=== PATIENT | female | born 1965 | race African-American/Black ===

== ENCOUNTER 2016-12-02 18:40 | Emergency (ER) | payer MEDICAID ==
[~2016-12-02] VITALS: Ht 162.6 cm; Wt 82.1 kg
[~2016-12-02 18:40] MED LIST: AMLODIPINE-BEN1 EACH PO; BACTRIM-DS1 EA PO; VICODIN 5-5001 EACH PO; ZITHROMAX250 MG ORAL
[2016-12-02 19:15] VITALS: BP 121/67
[2016-12-02 19:41] LABS: BASOPHILS % (AUTO) 1.9 % (0.0-2.0); EOSINOPHILS % (AUTO) 3.4 % (0.0-3.0); LYMPHOCYTES % (AUTO) 41.4 % (20.0-45.0); MEAN CORPUSCULAR HEMOGLOBIN 25.6 PG (27.0-31.0); MEAN CORPUSCULAR HGB CONC 32.1 G/DL (32.0-36.0); MEAN CORPUSCULAR VOLUME 80 FL (80-99); MEAN PLATELET VOLUME 6.1 FL (6.5-10.1); MONOCYTES % (AUTO) 7.7 % (1.0-10.0); NEUTROPHILS % (AUTO) 45.6 % (45.0-75.0); PLATELET COUNT 249 K/UL (150-450); RED BLOOD COUNT 3.59 M/UL (4.20-5.40); RED CELL DISTRIBUTION WIDTH 16.7 % (11.6-14.8); WHITE BLOOD COUNT 5.7 K/UL (4.8-10.8)
[2016-12-02 19:59] LABS: APPEARANCE,URINE CLEAR; KETONES,URINE 1+ (NEGATIVE); LEUKOCYTE ESTERASE ,URINE NEGATIVE (NEGATIVE); NITRITE,URINE NEGATIVE (NEGATIVE); PH,URINE 5 (4.5-8.0); PROTEIN,URINE NEGATIVE (NEGATIVE); UROBILINOGEN,URINE NORMAL MG/DL (0.0-1.0)
[2016-12-02 20:07] LABS: ALANINE AMINOTRANSFERASE 12 U/L (3-33); ALBUMIN/GLOBULIN RATIO 1.2 (1.0-2.7); ANION GAP 15 (5-15); ASPARTATE AMINO TRANSFERASE 19 U/L (5-40); CALCIUM 9.1 mg/dL (8.6-10.2); CARBON DIOXIDE 26 mEQ/L (20-30); CHLORIDE 100 mEQ/L (98-107); CREATININE 0.9 mg/dL (0.5-0.9); GLOMERULAR FILTRATION RATE > 60 mL/min (>60); HEMOLYSIS 1; LIPASE 37 U/L (< 60); POTASSIUM 3.3 mEQ/L (3.4-4.9); SODIUM 141 mEQ/L (135-145); TOTAL PROTEIN 7.5 g/dL (6.6-8.7)
[2016-12-02 20:13] LABS: RBC,URINE 0-2 /HPF (0 - 2); SQUAMOUS EPITHELIAL CELL,UR FEW /LPF (NONE/OCC); WBC,URINE 0-2 /HPF (0 - 2)
[2016-12-02 21:15] VITALS: BP 125/69
--- NOTE | 2016-12-02 22:08 | Emergency Room Report ---
History of Present Illness General Chief Complaint: Vaginal Source: Patient Present Illness HPI 51-year-old female presents ED for evaluation. States the last 2 weeks she's had increased vaginal bleeding. Notes clots. Notes some cramping pain, 5/10, nonradiating. No other aggravating or relieving factors. Patient states she had blood work done by her PMD which are low hemoglobin. States she feels weak. States she is IUD in place. Denies any other associated symptoms Allergies: Coded Allergies: No Known Allergies (Unverified , 07/14/12) Patient History Past Medical History: HTN Past Surgical History: none Pertinent Family History: none Social History: Denies: alcohol use, drug use, smoking Last Menstrual Period: 11/20/16 Now: No - 10 year IUD inserted 2010 Immunizations: UTD Reviewed Nursing Documentation: PMH: Agreed, PSxH: Agreed Nursing Documentation-PMH Past Medical History: No History, Except For Hx Hypertension: Yes Review of Systems All Other Systems: negative except mentioned in HPI Physical Exam Vital Signs Date Time Temp Pulse Resp B/P Pulse Ox O2 Delivery O2 Flow Rate FiO2 12/02/16 18:51 98.1 82 14 121/67 100 Room Air Sp02 EP Interpretation: reviewed, normal General Appearance: no apparent distress, alert, GCS 15, non-toxic Head: normocephalic, atraumatic Eyes: bilateral eye PERRL, bilateral eye normal inspection ENT: hearing grossly normal, normal pharynx, no angioedema, normal voice Neck: full range of motion, supple/symm/no masses Respiratory: chest non-tender, lungs clear, normal breath sounds, speaking full sentences Cardiovascular #1: regular rate, rhythm, no edema Cardiovascular #2: 2+ carotid (R), 2+ carotid (L), 2+ radial (R), 2+ radial (L) , 2+ dorsalis pedis (R), 2+ dorsalis pedis (L) Gastrointestinal: normal bowel sounds, non tender, soft, non-distended, no guarding, no rebound Rectal: deferred Genitourinary: normal inspection, no CVA tenderness Musculoskeletal: back normal, gait/station normal, normal range of motion, non- tender Neurologic: alert, oriented x3, responsive, motor strength/tone normal, sensory intact, speech normal Psychiatric: judgement/insight normal, memory normal, mood/affect normal, no suicidal/homicidal ideation Reflexes: 3+ bicep (R), 3+ bicep (L), 3+ tricep (R), 3+ tricep (L), 3+ knee (R) , 3+ knee (L) Skin: normal color, no rash, warm/dry, well hydrated Lymphatic: no adenopathy Medical Decision Making Diagnostic Impression: Primary Impression: Vaginal bleeding ER Course Hospital Course 51-year-old F presents to ED with lower abd pain, vaginal bleeding Differential diagnosis includes-fibroids, anemia, ovarian cyst Clinical course Patient placed on stretcher. After initial history and physical I ordered labs , PElvic US Labs - no leukocytosis, hb/hct stable, LFTs normal, UA unremarkable Pelvic US - IUD in place, no evidence of fibroids. No active bleeding Discussed the findings with patient. Given normal hemoglobin with normal ultrasound with no active bleeding I believe she can be discharged at this time. Recommend followup with [facility] for IUD removal Diagnosis - vaginal bleeding Stable and discharged to home. Followup with PMD. Return to ED if symptoms recur or worsen Labs Test 12/02/16 19:00 12/02/16 19:29 Urine Color Pale yellow Urine Appearance Clear Urine pH 5 (4.5-8.0) Urine Specific Glide 1.015 (1.005-1.035) Urine Protein Negative (NEGATIVE) Urine Glucose (UA) Negative (NEGATIVE) Urine Ketones 1+ (NEGATIVE) Urine Occult Blood 1+ (NEGATIVE) Urine Nitrite Negative (NEGATIVE) Urine Bilirubin Negative (NEGATIVE) Urine Urobilinogen Normal MG/DL (0.0-1.0) Urine Leukocyte Esterase Negative (NEGATIVE) Urine RBC 0-2 /HPF (0 - 2) Urine WBC 0-2 /HPF (0 - 2) Urine Squamous Epithelial Cells Few /LPF (NONE/OCC) Urine Bacteria None /HPF (NONE) Urine HCG, Qualitative Negative White Blood Count 5.7 K/UL (4.8-10.8) Red Blood Count 3.59 M/UL (4.20-5.40) Hemoglobin 9.2 G/DL (12.0-16.0) Hematocrit 28.5 % (37.0-47.0) Mean Corpuscular Volume 80 FL (80-99) Mean Corpuscular Hemoglobin 25.6 PG (27.0-31.0) Mean Corpuscular Hemoglobin Concent 32.1 G/DL (32.0-36.0) Red Cell Distribution Width 16.7 % (11.6-14.8) Platelet Count 249 K/UL (150-450) Mean Platelet Volume 6.1 FL (6.5-10.1) Neutrophils (%) (Auto) 45.6 % (45.0-75.0) Lymphocytes (%) (Auto) 41.4 % (20.0-45.0) Monocytes (%) (Auto) 7.7 % (1.0-10.0) Eosinophils (%) (Auto) 3.4 % (0.0-3.0) Basophils (%) (Auto) 1.9 % (0.0-2.0) Prothrombin Time 10.0 SEC (9.30-11.50) Prothromb Time International Ratio 1.0 (0.9-1.1) Activated Partial Thromboplast Time 24 SEC (23-33) Sodium Level 141 mEQ/L (135-145) Potassium Level 3.3 mEQ/L (3.4-4.9) Chloride Level 100 mEQ/L (98-107) Carbon Dioxide Level 26 mEQ/L (20-30) Anion Gap 15 (5-15) Blood Urea Nitrogen 11 mg/dL (7-23) Creatinine 0.9 mg/dL (0.5-0.9) Estimat Glomerular Filtration Rate > 60 mL/min (>60) Glucose Level 110 mg/dL (74-106) Calcium Level 9.1 mg/dL (8.6-10.2) Total Bilirubin < 0.2 mg/dL (0.0-1.2) Aspartate Amino Transf (AST/SGOT) 19 U/L (5-40) Alanine Aminotransferase (ALT/SGPT) 12 U/L (3-33) Alkaline Phosphatase 43 U/L (35-104) Total Protein 7.5 g/dL (6.6-8.7) Albumin 4.1 g/dL (3.5-5.2) Globulin 3.4 g/dL Albumin/Globulin Ratio 1.2 (1.0-2.7) Lipase 37 U/L (< 60) CT/MRI/US Diagnostic Results CT/MRI/US Diagnostic Results : Imaging Test Ordered: Pelvic US Impression no acute pathology. Last Vital Signs Date Time Temp Pulse Resp B/P Pulse Ox O2 Delivery O2 Flow Rate FiO2 12/02/16 21:15 98.1 84 16 125/69 100 Room Air Status: improved Disposition: HOME, SELF-CARE Condition: Stable Patient Instructions: Jose [id number] ANNY LAO M.D. Dec 02, 2016 22:07
--- NOTE | 2016-12-03 17:18 | Diagnostic Imaging Report ---
Indication: ABD PAIN heavy vaginal bleeding since last menstrual period Technique: Transabdominal and transvaginal images Comparison: None Findings: Uterus is slightly retroflexed, measures 11.8 cm length by 5 cm AP. Normal endometrial thickness, 2 mm. There is an intrauterine device. There is questionably a small anterior fundal fibroid. Left ovary measures 2.9 cm in length. Right ovary measures 3.8 cm in length, demonstrates a 3 cm presumed dominant follicle. Both ovaries demonstrate normal blood flow. No free cul-de-sac fluid. There are cervical nabothian cysts Impression: Intrauterine device Possible fundal fibroid 3 cm right ovarian presumed dominant follicle. Negative for ovarian mass Is no finding cervical nabothian cysts
== END 2016-12-02 21:15 | disposition home or self-care (01) ==
LOC: EMR 19:36
DX: N93.9 Abnormal uterine and vaginal bleeding, unspecified (principal); Z97.5 Presence of (intrauterine) contraceptive device; I10 Essential (primary) hypertension
CPT/HCPCS: 36415; 76856; 80053; 81003; 81025; 83690; 85025; 85610; 85730; 86850; 86900; 86901; 96360

== ENCOUNTER 2019-11-11 04:23 | Emergency (ER) | payer MEDICAID ==
[~2019-11-11] VITALS: Ht 170.2 cm; Wt 104.3 kg
--- NOTE | 2019-11-11 04:36 | Emergency Room Report ---
History of Present Illness General Chief Complaint: Sore Throat Source: Patient Present Illness HPI Disclaimer: Please note that this report is being documented using [employer] technology. This can lead to erroneous entry secondary to incorrect interpretation by the dictating instrument. HPI: 54-year-old female presents for evaluation of chills and sore throat. Symptoms began approximate 1 hour ago. She states she awoke in the middle the night complaining of pain in her throat, chills and subjective fevers. She took a tablet of leftover antibiotics that she had from a previous infection. Cannot recall what they are. She noted some nasal congestion and postnasal drip as well. Mild nonproductive cough. Reported one episode of loose stools. Denies any vomiting, rash. No objective temperature readings were taken. Did not take any Tylenol or Motrin prior to arrival. [place] not have any known exposures to sick persons. No recent travel. PMH: Denies PSH: Denies Allergies: Denies Social Hx: Denies Allergies: Coded Allergies: No Known Allergies (Unverified , 07/14/12) Nursing Documentation-PMH Hx Hypertension: Yes Review of Systems All Other Systems: negative except mentioned in HPI Physical Exam General: Awake and alert, no acute distress, afebrile HEENT: NC/AT. EOMI. PERRLA. Noninjected sclera. Uvula midline. Nonobstructive tonsils. No pharyngeal edema or erythema. No exudates or ulcerations. Mild sinus congestion. No tenderness over the maxillary or frontal or ethmoid sinuses. Cardiovascular: RRR. S1 and S2 normal. No murmur appreciated Resp: Normal work of breathing. No cough, wheezing or crackles appreciated Abdomen: Abdomen is soft, nondistended. Nontender Skin: Intact. No abrasions, laceration or rash over the exposed skin MSK: Normal tone and bulk. Moving all extremities. No obvious deformity. Neuro: Awake and alert. Mentating appropriately. Medical Decision Making Diagnostic Impression: Primary Impression: Influenza-like symptoms ER Course 54-year-old female no reported medical history presents for evaluation of 1 hour sore throat, nasal congestion, nonproductive cough and chills. She states that she is feeling "pre-feverish." [place] no known exposure to sick contacts. Differential includes was not limited to viral syndrome such as influenza or possible novel coronavirus, pharyngitis, tonsillitis, sinusitis, bronchitis, pneumonia. Symptoms only been present for 1 hour. She is well-appearing, afebrile, clear lung sounds. Stable for outpatient isolation. I am recommending 2-week minimum isolation and self quarantine. Recommending the patient contact her PMD to arrange for outpatient COVID-19 testing as our testing stock is currently depleted and cannot offer her testing during this hospital visit. She does not require emergent labs or imaging or admission at this time. She can follow-up on an outpatient basis. Discussed reasons to return to the emergency department proper isolation precautions. She understands and agrees with this treatment plan will be discharged home. Disposition: HOME, SELF-CARE Condition: Stable Claudio Mackay MD Nov 11, 2019 04:36
[2019-11-11 04:40] VITALS: BP 144/86
== END 2019-11-11 04:40 | disposition home or self-care (01) ==
LOC: EMR 04:40
DX: R07.0 Pain in throat (principal); R50.9 Fever, unspecified
CPT/HCPCS: 99281

== ENCOUNTER 2020-07-15 12:49 | Emergency (ER) | payer MEDICAID ==
[~2020-07-15] VITALS: Ht 162.6 cm; Wt 86.2 kg
--- NOTE | 2020-07-15 13:00 | NUR ---
ED Nurse Note: Pt ambulated to ED from home d/t chest pain midsternal, non-radiating, goes on and off since this morning around 0300. Pt is AOx4, calm and cooperative to care, pt complains of headache and weakness as well. Pt's VSS, on RA, afebrile on triage. Placed on bed, hooked to monitor car operator.
--- NOTE | 2020-07-15 13:01 | NUR ---
ED Nurse Note: pt denies having chest pain as of now.
[2020-07-15 13:10] VITALS: BP 152/101
--- NOTE | 2020-07-15 13:15 | NUR ---
ED Nurse Note: x-ray at bedside.
--- NOTE | 2020-07-15 13:21 | Emergency Room Report ---
History of Present Illness General Chief Complaint: Chest Pain Source: Patient Present Illness HPI Disclaimer: Please note that this report is being documented using [employer] technology. This can lead to erroneous entry secondary to incorrect interpretation by the dictating instrument. HPI: 55-year-old female history of hypertension hyperlipidemia presents for evaluation of chest discomfort. Patient states she awoke approximately 3 AM complaining of palpitations and feeding her heart beat irregularly. She reports some midsternal nonradiating chest discomfort but does not describe it as pain specifically. Sometimes exacerbated by bending and twisting motion. She denies epigastric pain or discomfort or burning sensation. She was drinking alcohol last night to celebrate her birthday. Denies tobacco use. No cough, shortness of breath, fever, chills, sore throat, vomiting or diarrhea reported. No prior history of CAD. No prior cardiac evaluations. Currently her symptoms are resolved but she states they have been coming and going throughout the day. PMH: Hypertension, hyperlipidemia PSH: Denied Allergies: Denied Social Hx: Social alcohol use Allergies: Coded Allergies: No Known Allergies (Unverified , 07/14/12) COVID-19 Screening Contact w/high risk pt: No Recent Travel to affected area: No Experienced COVID-19 symptoms?: No COVID-19 Testing performed [facility] INST[employer]ER: No Nursing Documentation-PMH Past Medical History: No History, Except For Hx Hypertension: Yes Review of Systems All Other Systems: negative except mentioned in HPI Physical Exam Vital Signs Date Time Temp Pulse Resp B/P (MAP) Pulse Ox O2 Delivery O2 Flow Rate FiO2 07/15/20 12:57 98.6 95 20 152/101 (118) 98 Room Air General: Awake and alert, no acute distress HEENT: NC/AT. EOMI. Cardiovascular: RRR. S1 and S2 normal. No murmur appreciated Resp: Normal work of breathing. No cough, wheezing or crackles appreciated Abdomen: Abdomen is soft, nondistended. Nontender Skin: Intact. No abrasions, laceration or rash over the exposed skin MSK: Normal tone and bulk. Moving all extremities. No obvious deformity. Neuro: Awake and alert. Mentating appropriately. Medical Decision Making Diagnostic Impression: Primary Impression: Chest pain Additional Impression: Palpitations ER Course Well-appearing 55-year-old female presents for evaluation of chest discomfort. Differential includes was not limited to symptoms of recent alcohol use, electrolyte abnormality, ACS, arrhythmia, palpitations, thyroid dysfunction among others. EKG shows signs of LVH but no evidence of acute ischemia. Troponin is negative. Other labs are within normal limits. Chest x-ray shows no infiltrates. I do believe that the patient would benefit from outpatient cardiology evaluation but I do not see evidence of acute life-threatening injury at this time. Patient will be given copies of her EKG and labs to discuss with her PMD for referral to cardiology. We discussed that she should return to the emergency department with new or worsening symptoms otherwise. Also advised her to limit alcohol and spicy foods as this may be reflux related. She understands and agrees with treatment plan will be discharged home. Laboratory Tests Test 07/15/20 13:29 White Blood Count 4.7 K/UL (4.8-10.8) L Red Blood Count 4.39 M/UL (4.20-5.40) Hemoglobin 13.4 G/DL (12.0-16.0) Hematocrit 41.9 % (37.0-47.0) Mean Corpuscular Volume 96 FL (80-99) Mean Corpuscular Hemoglobin 30.6 PG (27.0-31.0) Mean Corpuscular Hemoglobin Concent 32.1 G/DL (32.0-36.0) Red Cell Distribution Width 14.1 % (11.6-14.8) Platelet Count 235 K/UL (150-450) Mean Platelet Volume 8.6 FL (6.5-10.1) Neutrophils (%) (Auto) 53.4 % (45.0-75.0) Lymphocytes (%) (Auto) 33.4 % (20.0-45.0) Monocytes (%) (Auto) 8.4 % (1.0-10.0) Eosinophils (%) (Auto) 3.2 % (0.0-3.0) H Basophils (%) (Auto) 1.6 % (0.0-2.0) Sodium Level 139 MMOL/L (136-145) Potassium Level 3.3 MMOL/L (3.5-5.1) L Chloride Level 103 MMOL/L (98-107) Carbon Dioxide Level 25 MMOL/L (21-32) Anion Gap 11 mmol/L (5-15) Blood Urea Nitrogen 13 mg/dL (7-18) Creatinine 0.9 MG/DL (0.55-1.30) Estimated Glomerular Filtration Rate > 60 mL/min (>60) Glucose Level 102 MG/DL (74-106) Calcium Level 8.9 MG/DL (8.5-10.1) Total Bilirubin 0.5 MG/DL (0.2-1.0) Aspartate Amino Transferase (AST) 29 U/L (15-37) Alanine Aminotransferase (ALT) 31 U/L (12-78) Alkaline Phosphatase 53 U/L (46-116) Troponin I 0.007 ng/mL (0.000-0.056) Total Protein 8.2 G/DL (6.4-8.2) Albumin 3.7 G/DL (3.4-5.0) Globulin 4.5 g/dL Albumin/Globulin Ratio 0.8 (1.0-2.7) L Thyroid Stimulating Hormone (TSH) 0.421 uiU/mL (0.358-3.740) EKG Diagnostic Results Troponin ordered: Yes When was troponin ordered?: Jul 15, 2020 EKG Time: 13:10 Rate: normal Rhythm: NSR ST Segments: no acute changes Other Impression Sinus rhythm, left axis, normal intervals, QTC 457 ms, no ST segment changes. Rhythm Strip Diag. Results Rhythm Strip Time: 13:10 EP Interpretation: yes Rate: 80s Rhythm: NSR, no PVC's, no ectopy Chest X-Ray Diagnostic Results Chest X-Ray Diagnostic Results : Chest X-Ray Ordered: Yes # of Views/Limited/Complete: 1 View Indication: Chest Pain EP Interpretation: Yes Interpretation: no consolidation, no effusion, no pneumothorax, no acute cardiopulmonary disease, other Impression: No acute disease Electronically Signed by: Electronically signed by Dr. Claudio Mackay MD Last Vital Signs Date Time Temp Pulse Resp B/P (MAP) Pulse Ox O2 Delivery O2 Flow Rate FiO2 07/15/20 12:57 98.6 95 20 152/101 (118) 98 Room Air Disposition: HOME, SELF-CARE Condition: Stable Claudio Mackay MD Jul 15, 2020 13:21
[2020-07-15 13:43] LABS: BASOPHILS % (AUTO) 1.6 % (0.0-2.0); EOSINOPHILS % (AUTO) 3.2 % (0.0-3.0); HEMATOCRIT 41.9 % (37.0-47.0); HEMOGLOBIN 13.4 G/DL (12.0-16.0); LYMPHOCYTES % (AUTO) 33.4 % (20.0-45.0); MEAN CORPUSCULAR VOLUME 96 FL (80-99); MONOCYTES % (AUTO) 8.4 % (1.0-10.0); NEUTROPHILS % (AUTO) 53.4 % (45.0-75.0); PLATELET COUNT 235 K/UL (150-450); RED BLOOD COUNT 4.39 M/UL (4.20-5.40); RED CELL DISTRIBUTION WIDTH 14.1 % (11.6-14.8); WHITE BLOOD COUNT 4.7 K/UL (4.8-10.8)
[2020-07-15 14:25] LABS: ANION GAP 11 mmol/L (5-15); BLOOD UREA NITROGEN 13 mg/dL (7-18); CALCIUM 8.9 MG/DL (8.5-10.1); CARBON DIOXIDE 25 MMOL/L (21-32); CHLORIDE 103 MMOL/L (98-107); CREATININE 0.9 MG/DL (0.55-1.30); POTASSIUM 3.3 MMOL/L (3.5-5.1); SODIUM 139 MMOL/L (136-145)
[2020-07-15 14:38] LABS: ALANINE AMINOTRANSFERASE 31 U/L (12-78); ALBUMIN 3.7 G/DL (3.4-5.0); ALBUMIN/GLOBULIN RATIO 0.8 (1.0-2.7); ALKALINE PHOSPHATASE 53 U/L (46-116); ASPARTATE AMINO TRANSFERASE 29 U/L (15-37); BILIRUBIN,TOTAL 0.5 MG/DL (0.2-1.0)
[2020-07-15 15:00] VITALS: BP 148/98
--- NOTE | 2020-07-15 15:00 | NUR ---
ER DISCHARGE NOTE: Patient is cleared to be discharged per ERMD, pt is aox4, on room air, with stable vital signs. pt was given dc and prescription instructions, pt was able to verbalize understanding, pt id band and iv site removed without complications. pt is able to ambulate with steady gait. pt took all belongings.
--- NOTE | 2020-07-15 15:52 | Diagnostic Imaging Report ---
Indication: Chest pain Technique: One view of the chest Comparison: 05/31/2014 Findings: The lungs and pleural space are clear. The heart size is upper limits of normal. The aorta is tortuous. No significant change Impression: No acute process
== END 2020-07-15 15:00 | disposition home or self-care (01) ==
LOC: EMR 13:30
DX: R07.9 Chest pain, unspecified (principal); R00.2 Palpitations; I10 Essential (primary) hypertension; E78.5 Hyperlipidemia, unspecified
CPT/HCPCS: 36415; 71045; 80053; 84443; 84484; 85025; 93005; Z7502; 99283